=== PATIENT | female | born 1975 | race Caucasian/White ===

== ENCOUNTER 2022-02-21 10:48 | Outpatient (CLI) | payer BC, SELFPAY ==
[2022-02-21 15:40] LABS: SARS PCR* Negative SARS-CoV-2 (Negative)
== END 2022-02-21 10:49 | disposition home or self-care (01) ==
LOC: FBOREF 10:49
PROVIDERS: PCP Family Medicine; Visit Provider Obstetrics & Gynecology
DX: Z20.822 Contact with and (suspected) exposure to COVID-19 (principal); Z01.812 Encounter for preprocedural laboratory examination
CPT/HCPCS: 87635

== ENCOUNTER 2022-02-22 06:12 | Day surgery (SDC) | payer BC, SELFPAY ==
[2022-02-22] MEDS: LACTATED RINGERS 1000 ML 1,000 ML 100 ML IV (06:30)
[2022-02-22 06:45] VITALS: BP 116/83; PULSE 73; RESP 16; TEMP 36.5; O2SAT 95
[2022-02-22] MEDS: SODIUM CHLORIDE 0.9 % (FLUSH) 10 ML SYRINGE IVF (07:11)
[2022-02-22] MEDS: ETHYL CHLORIDE 1 APPLICATION 1 APPLIC TOPICAL (07:11)
[2022-02-22] MEDS: LIDOCAINE 1% 20 ML VIAL INJECTION (08:11)
[2022-02-22 08:21] LABS: HCG Qualitative Serum* Negative (Negative)
--- NOTE | 2022-02-22 08:43 | W.PM.GYNPROC ---
Procedure Note Date Seen: 02/22/22 Procedure Details: PREOPERATIVE DIAGNOSIS: Menorrhagia, suspected endometrial polyp POSTOPERATIVE DIAGNOSIS: Menorrhagia, endometrial polyp PROCEDURE: Hysteroscopy, endometrial polypectomy, dilation and curettage, Carol endometrial ablation SURGEON: Makeda Watkins MD ANESTHESIA: Monitored anesthesia care, paracervical block IV FLUIDS: 800 mL crystalloid URINE OUTPUT: 25 mL EBL: Less than 5 mL FINDINGS: 1. Exam under anesthesia revealed a mobile, anteverted uterus without any palpable adnexal masses 2. Upon hysteroscopy, the endocervix was normal in appearance. The endometrium exhibited a discrete polyp approximately 1 cm in length near the right cornual region. Endometrium was otherwise thickened anteriorly. Cavity shape was normal in appearance. Tubal ostia were normal. 3. Uterine sounded depth was 8.5 cm, cervical length 4.5 cm, cavity length 4 cm. COMPLICATIONS: None PROCEDURE IN DETAIL: Patient was taken to the operating room with IV running. She was positioned in dorsal lithotomy position with her legs fully supported in Yellofin stirrups. Monitored anesthesia care was administered. She was prepped and draped in the usual sterile fashion. Exam under anesthesia was performed for the above-noted findings. Speculum was inserted. Cervix visualized and grasped along the anterior lip with a single-tooth tenaculum. Paracervical block was performed for total 10 mL of 1% lidocaine. Cervix was serially dilated to accommodate the TRUCLEAR hysteroscope. This was assembled with saline inflow and outflow in place. The line was flushed of bubbles. The hysteroscope was advanced through the cervix into the endometrial cavity for the above noted findings. The tissue morcellator was then inserted through the operating channel. Window lock was performed. Under direct visualization, the endometrial cavity was circumferentially curetted with the tissue morcellator. The hysteroscope and morcellator were then removed from the uterus. Uterine and cervical measurements were then performed with uterine sound, with findings as noted above. Cervix was serially dilated to accommodate the Carol handheld device. The device was then powered on. The hand-held device was inserted through the cervix and the array was deployed. Appropriate uterine width was noted. The intracervical balloon was then inflated. The pedal was pushed to activate to the cavity integrity test, both of which were passed. The ablation cycle then ensued. Thereafter, the intracervical balloon was deflated, and the device was retracted from the uterus. Hysteroscope was reinserted, confirming ablation of the endometrium. Hysteroscope was removed. Tenaculum was removed from the anterior lip of cervix. Hemostasis was noted. Patient tolerated procedure well. She was taken to recovery area in stable condition.
--- NOTE | 2022-02-22 08:44 | W.ANESCHARGE ---
Anesthesia Charges Start Date/Time Anesthesia Start Date: 02/22/22 Anesthesia Start Time: 07:40 Stop Date/Time Anesthesia Stop Date: 02/22/22 Anesthesia Stop Time: 08:44 Summary Emergency: No
[2022-02-22 08:46] VITALS: BP 111/67; PULSE 79; RESP 14; TEMP 36.4; O2SAT 100
--- NOTE | 2022-02-22 08:56 | W.ANESCHARGE ---
Anesthesia Charges Start Date/Time Anesthesia Start Date: 02/22/22 Anesthesia Start Time: 07:40 Stop Date/Time Anesthesia Stop Date: 02/22/22 Anesthesia Stop Time: 08:44 Summary Emergency: No
[2022-02-22 09:00] VITALS: BP 121/73; PULSE 58; RESP 16; O2SAT 100
[2022-02-22 09:17] VITALS: BP 121/73; PULSE 58; RESP 16; O2SAT 100
[2022-02-22 09:32] VITALS: BP 109/63; PULSE 58; RESP 16; O2SAT 100
[2022-02-22 10:30] VITALS: BP 117/69; PULSE 65; RESP 16; O2SAT 99
== END 2022-02-22 11:20 | disposition home or self-care (01) ==
PROVIDERS: PCP Family Medicine; Visit Provider Obstetrics & Gynecology
PROC: 0UDB8ZZ Extraction of Endometrium, Via Natural or Artificial Opening Endoscopic (ICD-10-PCS; CPT 58558; principal; 2022-02-22 07:30)
DX: N92.0 Excessive and frequent menstruation with regular cycle (principal); N84.0 Polyp of corpus uteri
CPT/HCPCS: 58563; 00952; 36415; 84703; 86850; 86900; 86901; 88305; J1100; J1885; J2250; J2405; J2704; J3010; J3490; J7120

== ENCOUNTER 2022-02-27 10:00 | Outpatient (CLI) | payer BC, SELFPAY ==
[2022-02-27 12:58] LABS: Alanine Aminotransferase* 23 U/L (4-35); Aspartate Amino Transferase* 23 U/L (12-35)
== END 2022-02-27 10:01 | disposition home or self-care (01) ==
PROVIDERS: PCP Family Medicine; Visit Provider Family Medicine
DX: B35.1 Tinea unguium (principal)
CPT/HCPCS: 36415; 84450; 84460

== ENCOUNTER 2022-07-13 10:22 | Outpatient (CLI) | payer BC, SELFPAY ==
--- NOTE | 2022-07-13 10:15 | CRLHL7_ITS ---
For Patients: As a result of the Century Cures Act, medical imaging exams and procedure reports are released immediately into your electronic medical record. You may view this report before your referring provider. If you have questions, please contact your health care provider. BILATERAL SCREENING MAMMOGRAM WITH COMPUTER-AIDED DETECTION AND TOMOSYNTHESIS TECHNIQUE: CC and MLO views were obtained. These mammographic images have been obtained using full-field digital technique. These mammographic images were interpreted with the benefit of computer-aided detection. Breast Tomosynthesis was used in this interpretation. COMPARISON FILM: 05/01/21, 03/25/19, 01/10/15. FINDINGS: The breasts are heterogeneously dense, which may obscure small masses IMPRESSION: There is no radiographic evidence for malignancy. ASSESSMENT: BI-RADS Category 1: Negative RECOMMENDATION: Routine screening mammogram in 1 year. A lay language report of this examination will be provided to the patient. Denys Wolfe M.D. Diagnostic Radiologist [email or web address] Transcribed: 5:34 p.[address]. DW/Dictated by: Denys Wolfe MD @ 07/13/2022 12:10:00 PM (Electronically Signed)
== END 2022-07-13 10:23 | disposition home or self-care (01) ==
LOC: MAMMO 10:23
PROVIDERS: PCP Family Medicine; Visit Provider Obstetrics & Gynecology
DX: Z12.31 Encounter for screening mammogram for malignant neoplasm of breast (principal); R92.2 Inconclusive mammogram
CPT/HCPCS: 77063; 77067

== ENCOUNTER 2022-08-09 08:31 | Outpatient (CLI) | payer BC, SELFPAY ==
--- NOTE | 2022-08-09 10:00 | CRLHL7_ITS ---
For Patients: As a result of the Century Cures Act, medical imaging exams and procedure reports are released immediately into your electronic medical record. You may view this report before your referring provider. If you have questions, please contact your health care provider. Indication: EPIGASTRIC PAIN HERNIA ? MASS? Technique: Postcontrast CT abdomen and pelvis. 64 cc Isovue 370 intravenous contrast. Please note that all CT scans at this facility use dose modulation, iterative reconstruction, and/or weight-based dosing when appropriate to reduce radiation dose to as low as reasonably achievable. Comparison: Pelvic ultrasound 12/18/2021 Findings: Linear subsegmental atelectasis noted within the right middle lobe. No pleural effusion. 3 millimeter nonobstructing stone lower pole left kidney. Right kidney normal. Normal liver. Gallbladder unremarkable. Normal pancreas. Normal spleen. Adrenal glands are normal. No portal vein thrombosis. The superior mesenteric vein appears normal. The main portal vein is dilated measuring 2.4 cm. Patent splenic vein. No IVC thrombus. Simple right ovarian cyst is present measuring 2.5 cm. Unremarkable left ovary. Trace physiologic pelvic free fluid. Mildly heterogeneous uterus without defined fibroid. Bladder normal. No pelvic or abdominal adenopathy. Normal appendix. No bowel obstruction or free air. No fracture is present. Impression: No abdominal hernia. No intra-abdominal mass. Dilated main portal vein without thrombus. This is likely incidental. 2.5 cm simple right ovarian cyst. Please note that all CT scans at this facility use dose modulation, iterative reconstruction, and/or weight-based dosing when appropriate to reduce radiation dose to as low as reasonably achievable. Dictated by Denys Wolfe MD @ 08/09/2022 11:03:15 AM (Electronically Signed)
== END 2022-08-09 08:32 | disposition home or self-care (01) ==
LOC: CT 08:31
PROVIDERS: PCP Family Medicine; Visit Provider Surgery
DX: R10.13 Epigastric pain (principal); N83.201 Unspecified ovarian cyst, right side
CPT/HCPCS: 74177; Q9967

== ENCOUNTER 2023-08-09 10:22 | Outpatient (CLI) | payer BC, OTHER, SELFPAY ==
--- NOTE | 2023-08-09 10:15 | CRLHL7_ITS ---
For Patients: As a result of the Century Cures Act, medical imaging exams and procedure reports are released immediately into your electronic medical record. You may view this report before your referring provider. If you have questions, please contact your health care provider. BILATERAL SCREENING MAMMOGRAM WITH COMPUTER-AIDED DETECTION AND TOMOSYNTHESIS TECHNIQUE: CC and MLO views were obtained. These mammographic images have been obtained using full-field digital technique. These mammographic images were interpreted with the benefit of computer-aided detection. Breast Tomosynthesis was used in this interpretation. COMPARISON FILM: 07/13/22, 05/01/21, 03/25/19. FINDINGS: The breasts are heterogeneously dense, which may obscure small masses IMPRESSION: There is no radiographic evidence for malignancy. ASSESSMENT: BI-RADS Category 1: Negative RECOMMENDATION: Routine screening mammogram in 1 year. A lay language report of this examination will be provided to the patient. Denys Wolfe M.D. Diagnostic Radiologist [email or web address] Transcribed: 4:34 p.mateo [place]/Dictated by: Denys Wolfe MD @ 08/14/2023 12:07:00 PM (Electronically Signed)
--- OUTSIDE RECORDS SUMMARY | 2023-08-09 10:24 | XMS_ITS | Clinical Summary ---
Author Name Unknown Organization [facility] [employer] [facility] Address [place], [place] [address] Care Team Providers Care Grill Attendant Name Role Phone Pcp, No Primary Care Provider Unavailabl e Allergies Active Allergy Reactions Criticality Noted Date Comments Azithromycin Rash 03/14/2019 POSSIBLE RASH 10 DAYS LATER Medications Medication Sig Dispensed Refills Start Date End Date Status norgestimate-ethinyl estradiol (TRINESSA) 0.18/0.215/0.25 mg-35 mcg (28) tabletIndications:Tila ual physical exam Take 1 tablet by mouth once daily. Will call for refills 84 tablet 0 06/24/2012 Active hydrOXYzine HCL (ATARAX) 25 mg tabletIndications:Anx iety Take 1-2 Tablets (25-50 mg) by mouth every 8 hours if needed for Anxiety. 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 [address] [place] [address] Mack Monzon PA Palpitations (Primary Dx); Anxiety; Stage 3a chronic kidney disease (HC); Episodic lightheadedness Discharge Disposition: Home Self Care 08/06/2023 Travel from Last 3 Months Immunizations Name Administration Dates Next Due Tdap 01/21/2006 Family History Medical History Relation Name Comments Diabetes Father kidney failure Cancer Maternal Grandfather Cancer Maternal Grandmother Cancer Mother behind the eye, radiation, doing well Cancer-breast Mother surgery and ch emo Diabetes Paternal Grandfather cancer, lung Stroke Paternal Grandmother Relation Name Status Comments Father diabetes Maternal Grandfather Maternal Grandmother Mother Alive Paternal Grandfather lung ca ncer, diabetes Paternal Grandmother Social History Tobacco Use Types Packs/Day Years Used Date Smoking Tobacco: Some Days Cigarettes Smokeless Tobacco: Never Tobacco Cessation:Ready to Q uit: No; Counseling Given: Yes Comments:occasional Alcohol Use Standard Drinks/Week Comments Yes 0 (1 standard drink = 0.6 oz pur e alcohol) very occasional Sex and Gender Information Value Date Recorded Sex Assigned at Not on file Gender Identity Not on file Sexual Orientation Not on file Obstetrics History Para Term AB IAB SAB Ectopic Multiple Livin g Live Births 1 1 1 1 Date Outcome GA Total Labor Labor/2nd/3rd Weight Sex Delivery Anes PTL Blanche A1 A5 Name Cl in 2001 Term Last Filed Vital Signs Vital Sign Reading Time Taken Comments Blood Pressure 129/79 08/06/2023 4:46 PM LUMBER TRIMMER Pulse 81 08/06/2023 4:46 PM LUMBER TRIMMER Temperature 36.8 ??C (98.2 ??F) 08/06/2023 2:46 PM CS T Respiratory Rate 20 08/06/2023 2:46 PM LUMBER TRIMMER Oxygen Saturation 95% 08/06/2023 4:46 PM LUMBER TRIMMER Inhaled Oxygen Concentration - - Weight 59 kg (130 lb) 08/06/2023 2:46 PM LUMBER TRIMMER Height 162.6 cm (5' 4) 08/06/2023 2:46 PM LUMBER TRIMMER Body Mass Index 22.31 08/06/2023 2:46 PM LUMBER TRIMMER Plan of Treatment Health Maintenance Due Date Last Done Comments COVID-19 vaccine series (#1) 1976 Depression screening for age 12+ 1988 HIV for age 15-65 1991 BMI (ht and wt on same day) for age 18+ 1994 Hepatitis C screening for age 18-79 1994 Tetanus booster 01/22/2016 01/21/2006 Colonoscopy through age 75 2021 Lipids for age 45-75 2021 06/21/2009, 01/19/20 06 Mammogram for age 45-75 2021 01/10/2015 Pap test for age 21-65 07/04/2021 8, 07/04/2018, 12/07/2013, Additional history exists Influenza for age 9-49 03/29/2023 Tdap Completed 01/21/2006 Pneumococcal series for age 6-64 Aged Out No longer eligible based on patient's age to complete this topic Procedures Procedure Name Priority Date/Time Associated Diagnosis Comments TROPONIN T (HS) ONE TIME Timed 08/06/2023 5:02 PM LUMBER TRIMMER XR CHEST 1 VIEW PORTABLE STAT 08/06/2023 4:30 PM LUMBER TRIMMER CBC WITH AUTO DIFFERENTIAL STAT 08/06/2023 3:08 PM LUMBER TRIMMER MAGNESIUM STAT 08/06/2023 3:08 PM LUMBER TRIMMER PROTIME-INR STAT 08/06/2023 3:08 PM LUMBER TRIMMER TSH STAT 08/06/2023 3:08 PM LUMBER TRIMMER TROPONIN T (HS) ACUTE W/2HR REFLEX STAT 08/06/2023 3:08 PM LUMBER TRIMMER BASIC METABOLIC PANEL STAT 08/06/2023 3:08 PM LUMBER TRIMMER CBC WITH AUTO DIFFERENTIAL STAT 08/06/2023 3:08 PM LUMBER TRIMMER EKG 12 LEAD STAT 08/06/2023 2:58 PM LUMBER TRIMMER from Last 3 Months Results * TROPONIN T (HS) ONE TIME (08/06/2023 5:02 PM LUMBER TRIMMER) TROPONIN T HS <6 6-10 ng/L ng/L 08/06/2023 5:23 PM LUMBER TRIMMER [facility] Blood BLOOD SPECIMEN / Unknown Venipuncture / Unknown 08/06/2023 5:02 PM LUMBER TRIMMER 08/06/2023 5:05 PM LUMBER TRIMMER Mack RAMSEY CHEMISTRY [facility] [address] [place] [address] * XR CHEST 1 VIEW PORTABLE (08/06/2023 4:30 PM LUMBER TRIMMER) Anatomical Region Laterality Modality HEART, THORAX, CHEST Digital Rad iography 08/06/2023 4:41 PM LUMBER TRIMMER Impressions 08/06/2023 4:41 PM LUMBER TRIMMER No acute or significant findings. Dictated by Joselito Huang MD @ 08/06/2023 4:41:40 PM (Electronically Signed) Narrative 08/06/2023 4:41 PM LUMBER TRIMMER For Patients: ??As a result of the Cures Act, medical imaging exams and procedure reports are released immediately into your electronic medical record. ??You may view this report before your referring provider. ??If you have questions, please contact your health care provider. INDICATION: Chest pain. TECHNIQUE: Chest 1 views. COMPARISON: None. FINDINGS: Cardiovascular and mediastinum: ??Heart size and vasculature are normal in caliber and appearance. ?? Lungs and pleural spaces: ??Lungs are clear. ??No sign of infiltrate or mass. ??No sign of pleural effusion. ??No pneumothorax. ?? Bones and soft tissues: ??No significant findings. Procedure Note Joselito Huang MD - 08/06/2023 For Patients: As a result of the Cures Act, medical imagingexams and procedure reports are released immediately into your electronicmedical record. You may view this report before your referring provider.If you have questions, please contact your health care provider. INDICATION: Chest pain. TECHNIQUE: Chest 1 views. COMPARISON: None. FINDINGS: Cardiovascular and mediastinum: Heart size and vasculature are normal incaliber and appearance. Lungs and pleural spaces: Lungs are clear. No sign of infiltrate ormass. No sign of pleural effusion. No pneumothorax. Bones and soft tissues: No significant findings. IMPRESSION: No acute or significant findings. Dictated by Joselito Huang MD @ 08/06/2023 4:41:40 PM (Electronically Signed) Mack RAMSEY [facility] * TROPONIN T (HS) ACUTE W/2HR REFLEX (08/06/2023 3:08 PM LUMBER TRIMMER) TROPONIN T HS <6 6-10 ng/L ng/L 08/06/2023 3:41 PM [facility] Blood BLOOD SPECIMEN / Unknown Venipuncture / Unknown 08/06/2023 3:08 PM LUMBER TRIMMER 08/06/2023 3:11 PM LUMBER TRIMMER [facility] - 08/06/2023 3:41 PM LUMBER TRIMMER hs-cTnT (Elecsys Troponin T Gen 5) concentration (s) above the sex-specific 99th percentile (16 ng/L or greater for males or 11 ng/L or greater for females) are indicative of myocardial injury. If initial hs-cTnT <=100 ng/L at presentation, a 0h/2h ABSOLUTE (ng/L) delta change (rising or falling) of >=10 ng/L suggests a significant change, whereas a 0h/2h delta change <=3 ng/L suggests no significant change. If initial hs-cTnT >100 ng/L at presentation, a 0h/2h/ RELATIVE (percent, %) delta change of 20% is suggested to distinguish patients with acute vs. chronic myocardial injury. There are multiple etiologies that can cause hs-cTnT increases above the 99th percentile (myocardial injury) other than acute myocardial infarction. Clinical context and careful clinical evaluation are critical for diagnosis and risk-stratification. The diagnosis of acute myocardial infarction requires a rising and/or falling pattern in hs-cTnT concentrations with at least one value above the sex-specific 99th percentile PLUS at least one of the following clinical criteria: ischemic symptoms, new or presumed new significant ST-T wave changes or new LBBB, development of pathological Q waves, imaging evidence of new loss of viable myocardium or new regional wall motion abnormality, or identification of intracoronary atherothrombosis or an acute angiographic culprit on coronary angiography. In appropriate low-risk patients with a non-ischemic electrocardiogram without active chest pain with a symptom onset >3-hours without recurrence, a single initial hs-cTnT<6 ng/L identifies patient with a very low risk in emergency department patient population. Mack RAMSEY CHEMISTRY [facility] [address] [place] [address] * CBC WITH AUTO DIFFERENTIAL (08/06/2023 3:08 PM [facility]) Pathologist [facility] WHITE BLOOD COUNT 6.7 4.5 - 11.0 thou/cu mm 08/06/2023 3:19 PM [facility] RED BLOOD COUNT 4.76 4.00 - 5.20 mil/cu mm 08/06/2023 3:19 PM [facility] HEMOGLOBIN 14.5 12.0 - 16.0 g/dL 08/06/2023 3:19 PM [facility] HEMATOCRIT 41.6 33.0 - 51.0 % 08/06/2023 3:19 PM [facility] MCV 87 80 - 100 fL 08/06/2023 3:19 PM [facility] MCH 30.5 26.0 - 34.0 pg 08/06/2023 3:19 PM [facility] MCHC 34.9 32.0 - 36.0 g/dL 08/06/2023 3:19 PM [facility] RDW 12.9 11.5 - 15.5 % 08/06/2023 3:19 PM [facility] PLATELET COUNT 350 140 - 440 thou/cu mm 08/06/2023 3:19 PM [facility] MPV 9.0 6.5 - 11.0 fL 08/06/2023 3:19 PM [facility] % NEUT 73.1 % 08/06/2023 3:19 PM [facility] % LYMPH 18.9 % 08/06/2023 3:19 PM [facility] % MONO 5.5 % 08/06/2023 3:19 PM [facility] % EOS 1.8 % 08/06/2023 3:19 PM [facility] % BASO 0.7 % 08/06/2023 3:19 PM [facility] ABSOLUTE NEUTROPHILS 4.9 1.7 - 7.0 thou/cu mm 08/06/2023 3:19 PM [facility] ABSOLUTE LYMPHOCYTES 1.3 0.9 - 2.9 thou/cu mm 08/06/2023 3:19 PM [facility] ABSOLUTE MONOCYTES 0.4 <0.9 thou/cu mm 08/06/2023 3:19 PM [facility] ABSOLUTE EOSINOPHILS 0.1 <0.5 thou/cu mm 08/06/2023 3:19 PM [facility] ABSOLUTE BASOPHILS 0.1 <0.3 thou/cu mm 08/06/2023 3:19 PM [facility] Blood BLOOD SPECIMEN / Unknown Venipuncture / Unknown 08/06/2023 3:08 PM LUMBER TRIMMER 08/06/2023 3:11 PM LUMBER TRIMMER Mack RAMSEY HEMATOLOGY [facility] [address] [place] [address] * TSH (08/06/2023 3:08 PM LUMBER TRIMMER) TSH 1.19 0.27 - 4.20 uIU/mL 08/06/2023 3:41 PM [facility] Blood BLOOD SPECIMEN / Unknown Venipuncture / Unknown 08/06/2023 3:08 PM LUMBER TRIMMER 08/06/2023 3:11 PM LUMBER TRIMMER Narrative [facility] - 08/06/2023 3:41 PM LUMBER TRIMMER In Adults, TSH values between 5.00 and 10.00 uIU/ml do not necessarily indicate the presence of Hypothyroidism. Correlation with clinical findings such as presence of goiter and/or Thyroperoxidase (TPO) Antibody may be helpful. For more information please refer to TONIO 2004; 291: 228-238. Mack RAMSEY CHEMISTRY Performing Organization Address City/[facility]/ZIP Co de Phone Number [facility] [address] [place] [address] * PROTIME-INR (08/06/2023 3:08 PM LUMBER TRIMMER) INR 1.1 <1.3 08/06/2023 3:19 PM LUMBER TRIMMER [facility] PROTIME 12.0 10.3 - 12.3 sec 08/06/2023 3:19 PM LUMBER TRIMMER [facility] Blood BLOOD SPECIMEN / Unknown Venipuncture / Unknown 08/06/2023 3:08 PM LUMBER TRIMMER 08/06/2023 3:11 PM LUMBER TRIMMER Narrative [facility] - 08/06/2023 3:19 PM LUMBER TRIMMER ?Therapeutic Range 2.0-3.0 for most anticoagulated patients 2.5-3.5 or 4.0 for high risk patients The INR is only used for patients on stable oral anticoagulant therapy. It makes no significant contribution to the diagnosis or treatment of patients whose Protime is prolonged for other reasons. INR results are increased when heparin levels exceed 1.0 U/mL, which corresponds to an aPTT >125 seconds if the patient is on UFH. Mack RAMSEY HEMATOLOGY Performing Organization Address [facility] Co de Phone Number [facility] [address] [place] [address] * MAGNESIUM (08/06/2023 3:08 PM LUMBER TRIMMER) MAGNESIUM 2.1 1.6 - 2.6 mg/dL 08/06/2023 4:12 PM LUMBER TRIMMER [facility] Blood BLOOD SPECIMEN / Unknown Venipuncture / Unknown 08/06/2023 3:08 PM LUMBER TRIMMER 08/06/2023 3:11 PM LUMBER TRIMMER Mack RAMSEY CHEMISTRY Performing Organization Address City/[facility]/ZIP Co de Phone Number [facility] [address] [place] [address] * (ABNORMAL) BASIC METABOLIC PANEL (08/06/2023 3:08 PM LUMBER TRIMMER) SODIUM 141 136 - 145 mmol/L 08/06/2023 3:41 PM [facility] POTASSIUM 4.0 3.5 - 5.1 mmol/L 08/06/2023 3:41 PM [facility] CHLORIDE 105 98 - 107 mmol/L 08/06/2023 3:41 PM [facility] CO2,TOTAL 22 22 - 29 mmol/L 08/06/2023 3:41 PM [facility] ANION GAP 14 5 - 18 08/06/2023 3:41 PM [facility] GLUCOSE 122(H) 70 - 99 mg/dL 08/06/2023 3:41 PM [facility] CALCIUM 9.7 8.6 - 10.0 mg/dL 08/06/2023 3:41 PM [facility] BUN 14 6 - 20 mg/dL 08/06/2023 3:41 PM [facility] CREATININE 1.18(H) 0.50 - 0.90 mg/dL 08/06/2023 3:41 PM [facility] BUN/CREAT RATIO 12 10 - 20 3:41 PM [facility] eGFR 57(L) >90 mL/min/1.7 3m2 08/06/2023 3:41 PM [facility] Comment:As of 2021, eG FR is calculated by the CKD-EPI creatinine equation without race adjustment. ??eGFR can be influenced by muscle mass, exercise, and diet. ??The reported eGFR is an estimation only and is only applicable if the renal function is stable. Blood BLOOD SPECIMEN / Unknown Venipuncture / Unknown 08/06/2023 3:08 PM LUMBER TRIMMER 08/06/2023 3:11 PM [facility] Mack RAMSEY CHEMISTRY [facility] [address] [place] [address] * EKG 12 LEAD (08/06/2023 2:58 PM LUMBER TRIMMER) Interpretation Normal sinus rhythm Nonspecific ST abnormality Abnormal ECG No previous ECGs available BEYOND NOW Ventricular Rate 93 BPM BEYOND NOW Atrial Rate 93 BPM BEYOND NOW P-R Interval 158 ms BEYOND NOW QRS Duration 88 ms BEYOND NOW QT 384 ms BEYOND NOW QTc 477 ms BEYOND NOW P [place] 42 degrees BEYOND NOW R [place] 65 degrees BEYOND NOW T [place] 50 degrees BEYOND NOW 08/06/2023 2:58 PM LUMBER TRIMMER 08/06/2023 8:15 PM LUMBER TRIMMER Mack RAMSEY EKG ORD Performing Organization Address City/State/[facility] Co de Phone Number BEYOND NOW [place], [place] from Last 3 Months Care Teams Grill Attendant Relationship Specialty Start Date End Date Pcp, No . PCP - General 07/04/18
--- OUTSIDE RECORDS SUMMARY | 2023-08-09 10:24 | XMS_ITS | Clinical Summary ---
Author Name Unknown Organization [facility] Address [address] [address] Phone Care Team Providers Care Ob Gyn Physician Assistant Name Role Phone Unavailable Primary Care Provider Unavailabl e Allergies Active Allergy Reactions Criticality Noted Date Comments Azithromycin 03/14/2019 POSSIBLE RASH 10 DAYS LATER Medications Medication Sig Dispensed Refills Start Date End Date Status EPINEPHrine, auto-injector, (EPIPEN 2-CHAVEZ) 0.3 MG/0.3ML Solution Auto-injector injection Inject 0.3 mL into the muscle one time as needed for Anaphylaxis (PRN WHEEZING, SEVER RASH. PLEASE CARRY AT ALL TIMES. GENERIC ACCEPTABLE) for up to 1 dose. 1 Package 0 03/14/2019 Active Social History Tobacco Use Types Packs/Day Years Used Date Smoking Tobacco: Some Days Smokeless Tobacco: Never Alcohol Use Standard Drinks/Week Comments Not Currently 0 (1 standard drink = 0.6 oz pur e alcohol) Sex and Gender Information Value Date Recorded Sex Assigned at Not on file Gender Identity Not on file Sexual Orientation Not on file Obstetrics History Last Filed Vital Signs Vital Sign Reading Time Taken Comments Blood Pressure 119/82 03/14/2019 11:41 AM CDT Pulse 74 03/14/2019 11:41 AM CDT Temperature 36.8 ??C (98.3 ??F) 03/14/2019 11:41 AM C DT Respiratory Rate 16 03/14/2019 11:41 AM CDT Oxygen Saturation 96% 03/14/2019 11:41 AM CDT Inhaled Oxygen Concentration - - Weight 56.7 kg (125 lb) 03/14/2019 11:41 AM CDT Height 162.6 cm (5' 4) 03/14/2019 11:41 AM CDT Body Mass Index 21.46 03/14/2019 11:41 AM CDT Plan of Treatment Health Maintenance Due Date Last Done Comments CT Colonography 1976 Cervical Cancer Screening 1976 Cologuard 1976 Colonoscopy 1976 Colorectal Cancer Screening 1976 FIT/FOBT 1976 Hepatitis B Vaccine (Standin g Order) (1 of 3 - 3-dose series) 1976 Last pap w/ HPV Testing 1976 Last pap w/o HPV Testing 1976 MAMMO,SCREEN 1976 Sigmoidoscopy 1976 COVID-19 Vaccine (#1) 1976 PERTUSSIS (Standing Order) 1995 TETANUS (Standing Order) 1995 Influenza Vaccine Seasonal (Standing Order) (#1) 2023 HPV Vaccine (Standing Order) Aged Out No longer eligible based on patient's age to complete this topic Pneumococcal/PCV20 Vaccine: Pediatrics (2-5 yrs) and At-Risk Patients (6-64 yrs) (Standing Order) Aged Out No longer eligible b ased on patient's age to complete this topic
== END 2023-08-09 10:23 | disposition home or self-care (01) ==
LOC: MAMMO 10:22
PROVIDERS: PCP Family Medicine; Visit Provider Family Medicine
DX: Z12.31 Encounter for screening mammogram for malignant neoplasm of breast (principal); R92.2 Inconclusive mammogram
CPT/HCPCS: 77063; 77067

== ENCOUNTER 2023-08-19 08:40 | Outpatient (CLI) | payer BC, OTHER, SELFPAY ==
--- OUTSIDE RECORDS SUMMARY | 2023-08-20 07:15 | XMS_ITS | Clinical Summary ---
Author Name Unknown Organization [facility] Address [address] [address] Phone Care Team Providers Care Rolloff Truck Driver Name Role Phone Unavailable Primary Care Provider [...]
--- OUTSIDE RECORDS SUMMARY | 2023-08-20 07:15 | XMS_ITS | Clinical Summary ---
Author Name Unknown Organization [facility] Address [place], [place] [address] Care Team Providers Care Cash Management Clerk Name Role Phone Pcp, No Primary Care [...] Department Care Team Description 08/06/2023 2:46 PM FINISH INSPECTOR - 08/06/2023 5:44 PM FINISH INSPECTOR Emergency [facility] [address] [place] [address] Mack Monzon PA Palpitations (Primary Dx); Anxiety; [...] Comments Blood Pressure 129/79 08/06/2023 4:46 PM FINISH INSPECTOR Pulse 81 08/06/2023 4:46 PM FINISH INSPECTOR Temperature 36.8 ??C (98.2 ??F) 08/06/2023 2:46 PM CS T Respiratory Rate 20 08/06/2023 2:46 PM FINISH INSPECTOR Oxygen Saturation 95% 08/06/2023 4:46 PM FINISH INSPECTOR Inhaled Oxygen Concentration - - Weight 59 kg (130 lb) 08/06/2023 2:46 PM FINISH INSPECTOR Height 162.6 cm (5' 4) 08/06/2023 2:46 PM FINISH INSPECTOR Body Mass Index 22.31 08/06/2023 2:46 PM FINISH INSPECTOR Plan of Treatment Health Maintenance Due Date [...] (HS) ONE TIME Timed 08/06/2023 5:02 PM FINISH INSPECTOR XR CHEST 1 VIEW PORTABLE STAT 08/06/2023 4:30 PM FINISH INSPECTOR CBC WITH AUTO DIFFERENTIAL STAT 08/06/2023 3:08 PM FINISH INSPECTOR MAGNESIUM STAT 08/06/2023 3:08 PM FINISH INSPECTOR PROTIME-INR STAT 08/06/2023 3:08 PM FINISH INSPECTOR TSH STAT 08/06/2023 3:08 PM FINISH INSPECTOR TROPONIN T (HS) ACUTE W/2HR REFLEX STAT 08/06/2023 3:08 PM FINISH INSPECTOR BASIC METABOLIC PANEL STAT 08/06/2023 3:08 PM FINISH INSPECTOR CBC WITH AUTO DIFFERENTIAL STAT 08/06/2023 3:08 PM FINISH INSPECTOR EKG 12 LEAD STAT 08/06/2023 2:58 PM FINISH INSPECTOR from Last 3 Months Results * TROPONIN T (HS) ONE TIME (08/06/2023 5:02 PM FINISH INSPECTOR) TROPONIN T HS <6 6-10 ng/L ng/L 08/06/2023 5:23 PM FINISH INSPECTOR [facility] Blood BLOOD SPECIMEN / Unknown Venipuncture / Unknown 08/06/2023 5:02 PM FINISH INSPECTOR 08/06/2023 5:05 PM FINISH INSPECTOR Mack RAMSEY CHEMISTRY [facility] [address] [place] [address] * XR CHEST 1 VIEW PORTABLE (08/06/2023 4:30 PM FINISH INSPECTOR) Anatomical Region Laterality Modality HEART, THORAX, CHEST Digital Rad iography 08/06/2023 4:41 PM FINISH INSPECTOR Impressions 08/06/2023 4:41 PM FINISH INSPECTOR No acute or significant findings. Dictated by Joselito Huang MD @ 08/06/2023 4:41:40 PM (Electronically Signed) Narrative 08/06/2023 4:41 PM FINISH INSPECTOR For Patients: ??As a result of the [...] (HS) ACUTE W/2HR REFLEX (08/06/2023 3:08 PM FINISH INSPECTOR) TROPONIN T HS <6 6-10 ng/L ng/L 08/06/2023 3:41 PM [facility] Blood BLOOD SPECIMEN / Unknown Venipuncture / Unknown 08/06/2023 3:08 PM FINISH INSPECTOR 08/06/2023 3:11 PM FINISH INSPECTOR [facility] - 08/06/2023 3:41 PM FINISH INSPECTOR hs-cTnT (Elecsys Troponin T Gen 5) concentration [...] emergency department patient population. Mack RAMSEY CHEMISTRY [facility] [address] [place] [address] * CBC WITH AUTO DIFFERENTIAL (08/06/2023 3:08 PM RUST) Pathologist [facility] WHITE BLOOD COUNT 6.7 4.5 - 11.0 thou/cu mm 08/06/2023 3:19 PM [facility] RED BLOOD COUNT 4.76 4.00 - 5.20 mil/cu mm 08/06/2023 3:19 PM [facility] HEMOGLOBIN 14.5 12.0 - 16.0 g/dL 08/06/2023 3:19 PM [facility] HEMATOCRIT 41.6 33.0 - 51.0 % 08/06/2023 3:19 PM [facility] MCV 87 80 - 100 fL 08/06/2023 3:19 PM [facility] MCH 30.5 26.0 - 34.0 pg 08/06/2023 3:19 PM [facility] MCHC 34.9 32.0 - 36.0 g/dL 08/06/2023 3:19 PM [facility] RDW 12.9 11.5 - 15.5 % 08/06/2023 3:19 PM [facility] PLATELET COUNT 350 140 - 440 thou/cu mm 08/06/2023 3:19 PM [facility] MPV 9.0 6.5 - 11.0 fL 08/06/2023 3:19 PM [facility] % NEUT 73.1 % 08/06/2023 3:19 PM [facility] % LYMPH 18.9 % 08/06/2023 3:19 PM [facility] % MONO 5.5 % 08/06/2023 3:19 PM [facility] % EOS 1.8 % 08/06/2023 3:19 PM [facility] % BASO 0.7 % 08/06/2023 3:19 PM [facility] ABSOLUTE NEUTROPHILS 4.9 1.7 - 7.0 thou/cu mm 08/06/2023 3:19 PM [facility] ABSOLUTE LYMPHOCYTES 1.3 0.9 - 2.9 thou/cu mm 08/06/2023 3:19 PM [facility] ABSOLUTE MONOCYTES 0.4 <0.9 thou/cu mm 08/06/2023 3:19 PM [facility] ABSOLUTE EOSINOPHILS 0.1 <0.5 thou/cu mm 08/06/2023 3:19 PM [facility] ABSOLUTE BASOPHILS 0.1 <0.3 thou/cu mm 08/06/2023 3:19 PM [facility] Blood BLOOD SPECIMEN / Unknown Venipuncture / Unknown 08/06/2023 3:08 PM FINISH INSPECTOR 08/06/2023 3:11 PM FINISH INSPECTOR Mack RAMSEY HEMATOLOGY [facility] [address] [place] [address] * TSH (08/06/2023 3:08 PM FINISH INSPECTOR) TSH 1.19 0.27 - 4.20 uIU/mL 08/06/2023 3:41 PM [facility] Blood BLOOD SPECIMEN / Unknown Venipuncture / Unknown 08/06/2023 3:08 PM FINISH INSPECTOR 08/06/2023 3:11 PM FINISH INSPECTOR Narrative [facility] - 08/06/2023 3:41 PM FINISH INSPECTOR In Adults, TSH values between 5.00 and 10.00 uIU/ml do not necessarily indicate the presence of Hypothyroidism. Correlation with clinical findings such as presence of goiter and/or Thyroperoxidase (TPO) Antibody may be helpful. For more information please refer to TONIO 2004; 291: 228-238. Mack RAMSEY CHEMISTRY Performing Organization Address City/[facility]/ZIP Co de Phone Number [facility] [address] [place] [address] * PROTIME-INR (08/06/2023 3:08 PM FINISH INSPECTOR) INR 1.1 <1.3 08/06/2023 3:19 PM FINISH INSPECTOR [facility] PROTIME 12.0 10.3 - 12.3 sec 08/06/2023 3:19 PM FINISH INSPECTOR [facility] Blood BLOOD SPECIMEN / Unknown Venipuncture / Unknown 08/06/2023 3:08 PM FINISH INSPECTOR 08/06/2023 3:11 PM FINISH INSPECTOR Narrative [facility] - 08/06/2023 3:19 PM FINISH INSPECTOR ?Therapeutic Range 2.0-3.0 for most anticoagulated patients [...] UFH. Mack RAMSEY HEMATOLOGY Performing Organization Address [facility] Co de Phone Number [facility] [address] [place] [address] * MAGNESIUM (08/06/2023 3:08 PM FINISH INSPECTOR) MAGNESIUM 2.1 1.6 - 2.6 mg/dL 08/06/2023 4:12 PM FINISH INSPECTOR [facility] Blood BLOOD SPECIMEN / Unknown Venipuncture / Unknown 08/06/2023 3:08 PM FINISH INSPECTOR 08/06/2023 3:11 PM FINISH INSPECTOR Mack RAMSEY CHEMISTRY Performing Organization Address City/[facility]/ZIP Co de Phone Number [facility] [address] [place] [address] * (ABNORMAL) BASIC METABOLIC PANEL (08/06/2023 3:08 PM FINISH INSPECTOR) SODIUM 141 136 - 145 mmol/L 08/06/2023 3:41 PM [facility] POTASSIUM 4.0 3.5 - 5.1 mmol/L 08/06/2023 3:41 PM [facility] CHLORIDE 105 98 - 107 mmol/L 08/06/2023 3:41 PM [facility] CO2,TOTAL 22 22 - 29 mmol/L 08/06/2023 3:41 PM [facility] ANION GAP 14 5 - 18 08/06/2023 3:41 PM [facility] GLUCOSE 122(H) 70 - 99 mg/dL 08/06/2023 3:41 PM [facility] CALCIUM 9.7 8.6 - 10.0 mg/dL 08/06/2023 3:41 PM [facility] BUN 14 6 - 20 mg/dL 08/06/2023 3:41 PM [facility] CREATININE 1.18(H) 0.50 - 0.90 mg/dL 08/06/2023 3:41 PM [facility] BUN/CREAT RATIO 12 10 - 20 3:41 PM [facility] eGFR 57(L) >90 mL/min/1.7 3m2 08/06/2023 3:41 PM [facility] Comment:As of 2021, eG FR is calculated by the CKD-EPI creatinine equation without race adjustment. ??eGFR can be influenced by muscle mass, exercise, and diet. ??The reported eGFR is an estimation only and is only applicable if the renal function is stable. Blood BLOOD SPECIMEN / Unknown Venipuncture / Unknown 08/06/2023 3:08 PM FINISH INSPECTOR 08/06/2023 3:11 PM [facility]UST Mack RAMSEY CHEMISTRY [facility] [address] [place] [address] * EKG 12 LEAD (08/06/2023 2:58 PM FINISH INSPECTOR) Interpretation Normal sinus rhythm Nonspecific ST abnormality Abnormal ECG No previous ECGs available BEYOND NOW Ventricular Rate 93 BPM BEYOND NOW Atrial Rate 93 BPM BEYOND NOW P-R Interval 158 ms BEYOND NOW QRS Duration 88 ms BEYOND NOW QT 384 ms BEYOND NOW QTc 477 ms BEYOND NOW P [place] 42 degrees BEYOND NOW R [place] 65 degrees BEYOND NOW T [place] 50 degrees BEYOND NOW 08/06/2023 2:58 PM FINISH INSPECTOR 08/06/2023 8:15 PM FINISH INSPECTOR Mack RAMSEY EKG ORD Performing Organization Address City/State/[facility] Co de Phone Number BEYOND NOW [place], [place] from Last 3 Months Care Teams Cash Management Clerk Relationship Specialty Start Date End Date Pcp, No . PCP - General 07/04/18
== END 2023-08-19 08:41 | disposition home or self-care (01) ==
LOC: NFLDREF 08-20 07:13
PROVIDERS: PCP Family Medicine; Referring Provider Family Medicine; Visit Provider Family Medicine
DX: R94.4 Abnormal results of kidney function studies (principal); Z13.1 Encounter for screening for diabetes mellitus; Z13.6 Encounter for screening for cardiovascular disorders; Z13.220 Encounter for screening for lipoid disorders
CPT/HCPCS: 80053; 80061

== ENCOUNTER 2023-10-08 09:06 | Outpatient (CLI) | payer OTHER, BC, SELFPAY | END 2023-10-08 09:07 | disposition home or self-care (01) | PROVIDERS: PCP Family Medicine; Visit Provider Obstetrics & Gynecology | DX: R00.2 Palpitations (principal); R74.01 Elevation of levels of liver transaminase levels | CPT/HCPCS: 80076; 84443 ==

== ENCOUNTER 2024-07-20 08:38 | Outpatient (CLI) | payer OTHER, SELFPAY ==
--- NOTE | 2024-07-20 08:45 | CRLHL7_ITS ---
For Patients: As a result of the Cures Act, medical imaging exams and procedure reports are released immediately into your electronic medical record. You may view this report before your referring provider. If you have questions, please contact your health care provider. BILATERAL DIAGNOSTIC MAMMOGRAM WITH COMPUTER-AIDED DETECTION AND TOMOSYNTHESIS RIGHT BREAST ULTRASOUND CLINICAL HISTORY: RIGHT breast lump. COMPARISON: 08/09/2023, 07/13/2022, 05/01/2021. TECHNIQUE: Digital BILATERAL mammogram in four projections with computer-aided detection. Tomosynthesis was used in this interpretation. Real-time ultrasound imaging of RIGHT breast with imaging documentation. BREAST COMPOSITION: The breasts are heterogeneously dense, which may obscure small masses. FINDINGS: 3D CC/MLO BILATERAL mammogram images submitted. No suspicious masses or architectural distortion. No suspicious calcifications. No adenopathy. Targeted RIGHT breast ultrasound 10 o`clock, 8 cm from the nipple. Normal dense fibroglandular tissue. No solid mass or fibrocystic change. IMPRESSION: No suspicious findings. No evidence of malignancy. RECOMMENDATIONS: Routine screening mammography. BI-RADS Category 2: Benign A lay language report of this examination will be provided to the patient. Dictated by: Denys Wolfe MD @07/20/2024 9:34:26 AM /sp SP/Dictated by: Denys Wolfe MD @ 07/20/2024 9:59:00 AM (Electronically Signed)
--- NOTE | 2024-07-20 09:15 | CRLHL7_ITS ---
For Patients: As a result of the Century Cures Act, medical imaging exams and procedure reports are released immediately into your electronic medical record. You may view this report before your referring provider. If you have questions, please contact your health care provider. PLEASE SEE BILATERAL BREAST MAMMOGRAM PERFORMED SAME DAY. CRL:sp SP/Dictated by: Denys Wolfe MD @ 07/20/2024 9:34:00 AM (Electronically Signed)
== END 2024-07-20 08:39 | disposition home or self-care (01) ==
LOC: MAMMO 08:39
PROVIDERS: PCP Family Medicine; Visit Provider Registered Nurse
DX: N63.10 Unspecified lump in the right breast, unspecified quadrant (principal)
CPT/HCPCS: 76642; 77066; G0279